=== PATIENT | female | born 1960 | race Caucasian/White ===

== ENCOUNTER → 2018-07-13 | Outpatient (CLI) | payer OTHER, SELFPAY ==
--- NOTE | 2018-07-13 15:30 | NEURO ---
NCS and/or EMG Patient Report Ordering Doctor: Meliton Marshall DATE OF SERVICE: 07/13/18 Claudia Matt is a 58-year-old female presents for electrodiagnostic testing of the right upper limb. She reports pain in the right shoulder which intermittently radiates to the right hand. Electrodiagnostic findings: Right median motor nerve demonstrates normal distal latency, amplitude and conduction velocity. Normal right ulnar motor response. Normal median ulnar F-wave. Sensory responses are within normal limits. Needle EMG testing shows no evidence of denervation with normal motor unit action potentials. Electrodiagnostic assessment: This is a normal electrodiagnostic study of the right upper limb. There is no electrodiagnostic evidence for peripheral neuropathy, including carpal tunnel syndrome. No letter diagnostic evidence is noted for cervical radiculopathy. If there are any further questions, please do not hesitate to contact me.
== END | disposition home or self-care (01) ==
LOC: PSN 14:11
PROVIDERS: Family Provider Family Medicine; PCP Family Medicine; Referring Provider Orthopaedic Surgery; Visit Provider Orthopaedic Surgery
DX: M75.41 Impingement syndrome of right shoulder (principal)
CPT/HCPCS: 95886; 95910

== ENCOUNTER 2018-07-30 22:07 | Emergency (ER) | payer OTHER, SELFPAY ==
[2018-07-30 22:07] VITALS: BP 140/107; PULSE 94; RESP 18; TEMP 36.8; O2SAT 97; BMI 23.6
--- NOTE | 2018-07-30 22:16 | CT_ITS ---
HISTORY: FELL AND HIT HEAD ON TUB,PT HAS LACERATION TO BACK OF HEAD,ELEVATED BP,ETOHHX:HTN EXAMINATION: CT Head or Brain W/O Contrast TECHNIQUE: Multiple axial images were obtained of the brain without intravenous contrast. A radiation dose optimization technique was used for this scan. IV Contrast dosage and agent: None. COMPARISON: None FINDINGS: Normal ventricles and normal ritchie-white matter differentiation. No intracranial mass, hemorrhage, or acute intracranial abnormality. Posterior fossa structures are on remarkable. No suspicious extra-axial fluid collection. Posterior right parietal small subgaleal scalp hemorrhage. No underlying calvarial fracture or bony abnormality. As visualized, the mastoids and paranasal sinuses appear clear. CT/Brain/Head without Contrast IMPRESSION: 1. Normal CT brain without contrast. 2. Posterior right parietal small subgaleal scalp hemorrhage. No associated calvarial fracture. Individualized dose optimization techniques were used for this CT. at 2310 Reported and signed by: Darrel Hager MD Electronically Signed: Darrel Hager, at 23:09 EDT Tel , Service support ,
--- NOTE | 2018-07-30 23:35 | ED.VISSUMM ---
- ER Visit Summary Date of Service: 07/30/18 Chief Complaint: [] History of Present Illness: The patient is a 58 F fall patient presents to the emergency department after a fall. Patient states that she does drink. She was drinking time with a friend. She went to her bathroom and lost her balance. She fell backwards and struck her head. She did not lose consciousness. Patient is not on anticoagulants. She denies any other significant medical history. She denies headache or vision change. She denies any weakness. She states the fall was strictly mechanical. Physical Examination: Vital signs reviewed General: Well-nourished, well-developed Head: Normocephalic, 3 cm laceration on the posterior right occipital area. No step-off. No active bleeding. Eyes: Pupils equal and reactive, extraocular muscles intact Neck, supple, no lymphadenopathy Heart: Regular rate and rhythm Respiratory: No distress, clear bilaterally Abdomen: Soft, nontender, nondistended, no peritoneal signs Back: Nontender Extremities: Nontender, no edema, no cords Skin: Normal color no rash Neuro: Alert and oriented, no focal or lateralizing deficits Test Results: [] Emergency Department Course and Treatment: Given the patient's intoxication, CT of the head was obtained. This shows no evidence of acute intracranial abnormality. Patient's wound was anesthetized. It was irrigated explored. It was closed with 4 juanita. The patient tolerated this without issue. Family was here and will take the patient home. She was counseled on wound care. She will be discharged home. Treatment Plan: [] Disposition: Discharge Impression: 1. Fall with 3 cm scalp laceration 2. Laceration repair This note was generated with [employer] dictation software. It may contain incorrect words, spelling, and punctuation that were not noted in review of the chart prior to signing ED Disposition - Plan for ED Patient: Instructions: ED Laceration Scalp Stitch Or Stap Referrals: Amari Bender MD [Primary Care Provider] - 10 Day for suture removal
== END 2018-07-30 23:43 | disposition home or self-care (01) ==
LOC: ED 22:33
PROVIDERS: Emergency Provider Emergency Medicine; Family Provider Family Medicine; PCP Family Medicine
DX: S01.01XA Laceration without foreign body of scalp, initial encounter (principal); R40.2410 Glasgow coma scale score 13-15, unspecified time; W19.XXXA Unspecified fall, initial encounter; Y93.9 Activity, unspecified; Y92.9 Unspecified place or not applicable; F10.129 Alcohol abuse with intoxication, unspecified; Y90.9 Presence of alcohol in blood, level not specified; I10 Essential (primary) hypertension; Z79.899 Other long term (current) drug therapy; Z72.0 Tobacco use
CPT/HCPCS: 12002; 70450; 99283